=== PATIENT | male | born 1945 | race Caucasian/White ===

== ENCOUNTER 2019-08-06 07:16 | Emergency (ER) | payer OTHER ==
[~2019-08-06] VITALS: Ht 182.9 cm; Wt 77.0 kg
[2019-08-06] MEDS ORDERED: [UNRECOGNIZED DRUG - OTHER] (07:30)
[2019-08-06] MEDS ORDERED: ATOR10TA PO (07:30)
[2019-08-06] MEDS ORDERED: LOSA25TA3 PO (07:30)
[2019-08-06] MEDS ORDERED: OXYCODONE HCL/ACETAMINOPHEN 5/325MG TABLET PO ONE (08:00)
[2019-08-06] MEDS ORDERED: TETANUS, DIPHTHERIA, PERTUSSIS VAC/PF 0.5ML (>7YR OLD) IM ONE (08:00)
[2019-08-06] MEDS ORDERED: LIDOCAINE 1%/EPI 1:100,000 10 ML VIAL IJ ONE ×2 (08:00→09:30)
[2019-08-06] MEDS ORDERED: LIDOCAINE HCL/EPINEPHRINE 1%-EPI 1:100,000 20 ML VIAL INFIL NR (09:00)
[2019-08-06 11:27] VITALS: BP 160/99
== END 2019-08-06 11:31 | disposition home or self-care (01) ==
LOC: ER 07:16
DX: S01.01XA Laceration without foreign body of scalp, initial encounter (principal); V49.40XA Driver injured in collision with unspecified motor vehicles in traffic accident, initial encounter; Y93.89 Activity, other specified; Y92.410 Unspecified street and highway as the place of occurrence of the external cause; Z23 Encounter for immunization
CPT/HCPCS: 12011; 70450; 73030; 90471; 90715; 99284; J3490; Z7610